=== PATIENT | female | born 1950 | race Caucasian/White ===

== ENCOUNTER 2016-06-05 22:13 | Inpatient (IN) | payer MEDICARE, BC, OTHER ==
[~2016-06-05] VITALS: Ht 170.2 cm; Wt 72.5 kg
--- NOTE | ~2016-06-05 | DS ---
PATIENT'S NAME: RENE MUNGUIA I [facility] AGE: 65 Y [address] ROOM: [address] [address] LOCATION: GPCU ADMIT DATE: 06/05/2016 Discharge Summary DISCHARGE DATE: 06/09/2016 FAMILY PHYSICIAN: Emerson Edmonds ATTENDING PHYSICIAN: John Park ADMITTING DIAGNOSIS: Subcapital fracture, left hip. COMORBIDITIES: Hypertension and vitamin D deficiency. PROCEDURE: Total hip arthroplasty, she had an Accolade II 127 degree neck angle, size 3 stem, +5, 36 mm femoral head, 52 mm cup. HOSPITAL COURSE: After admission, with a fall and a displaced subcapital fracture of the left hip, once Hospitalist cleared the patient, she was taken to the operating room, where the aforementioned total hip arthroplasty was performed. Postoperatively, hemoglobin was 11, DIE FINISHER intact to the operative foot, alert, awake, and oriented x3, some mild nausea, felt to be associated with Dilaudid. Postop day 2, continued to be nauseated. Postop day 3, hemoglobin 9.7, continued adjustments were made for accelerated hypertension. DISCHARGE INSTRUCTIONS: Follow up with myself in 6-[address] Park in 3 weeks. Hip dislocation precautions, thigh-high DUSTY hose to left lower leg, and the patient was discharged to home. Additional labs ordered in a week, vitamin D level recheck, additional prescriptions were written for aspirin 325 p.o. daily for DVT prophylaxis, Celebrex 200 mg p.o. b.i.d. for 1 week, Dilaudid 2 mg 1 p.o. q.4 h. p.r.n. pain, dispense 40, and prescription written for vitamin D 50,000 units once weekly for 8 weeks. Another prescription was written for front-wheel walker. CATHY STANFORD FOR MD MARCO A MARQUIS/[place] /[id number] d: 07/01/16 0329 t: 07/07/16 1033, DISCHARGE SUMMARY
--- NOTE | ~2016-06-05 | HP ---
PATIENT'S NAME: MUNGUIA, [facility] AGE: 65 Y [address] ROOM: [place] [address] LOCATION: GPCU ADMIT DATE: 06/05/2016 History & Physical DISCHARGE DATE: FAMILY PHYSICIAN: Emerson Edmonds ATTENDING PHYSICIAN: John Park DATE OF SERVICE: CHIEF COMPLAINT/HISTORY OF PRESENT ILLNESS: This is a 65-year-old female, who has been noticing about 4 weeks or so of left groin and anterior thigh pain. She assumed that it was muscular pain, but then last night her legs gave out and she fell on her left side. She was taken to [facility] where radiographs showed a displaced subcapital fracture of her left hip. 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 She had a recent bout of anal cancer, treated with chemotherapy and radiation. She apparently has been cancer free for a year now. PAST MEDICAL HISTORY: ALLERGIES: SHE STATES THAT MORPHINE AND PERCOCET CAUSE NAUSEA AND VOMITING. MEDICATIONS: 1. Zyrtec. 2. Mucinex. 3. Naproxen. 4. Dyazide. 5. Vitamin E. OPERATIONS: Appendectomy in the past. ILLNESSES: None other than the anal cancer, diagnosed 4 years ago, treated with chemotherapy and radiation. She also has a history of gastric carcinoma, diagnosed at the same time of her anal cancer, treated with chemotherapy and radiation. HABITS: She denies use or abuse of tobacco and alcohol. She quit smoking about 4 years ago and she smoked about a pack a day for 20 years. SOCIAL HISTORY: The patient is and lives in [place]. PATIENT'S NAME: EZRA [facility] AGE: 65 Y [address] ROOM: [address] [place] [id number] LOCATION: GPCU ADMIT DATE: 06/05/2016 History & Physical DISCHARGE DATE: FAMILY PHYSICIAN: Emerson Edmonds ATTENDING PHYSICIAN: John Park FAMILY HISTORY: Heart disease in her father, who is . Diabetes in her mother, who also is . 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 Osteoporosis by history. GI: History of gastric carcinoma and anal cancer as above. HEENT: Denies head injury or loss of consciousness. LUNGS: Denies shortness of breath or chest pain. CARDIOVASCULAR: Denies chest pain or palpitations. PHYSICAL EXAMINATION: GENERAL: This is a well-developed and well-nourished female, who is alert and cooperative. She is examined while she is lying in bed. VITAL SIGNS: Temperature 97.4, heart rate 76, respirations 12, and blood pressure 149/70. HEENT: Head normocephalic and atraumatic. NECK: Nontender. CARDIOVASCULAR: Regular rate and rhythm. LUNGS: Clear to auscultation. ABDOMEN: Soft. Nontender. She has a couple of tattoos, one in the midline for her radiation therapy markers. EXTREMITIES: She has lymphedema in her left lower extremity and pain on any attempts of motion. NEUROLOGIC: Cranial nerves II through XII grossly intact. Sensation intact in her left lower extremity. RADIOGRAPHS: Accompanied the patient from [place]. These are AP and lateral of the entire left femur and these show a displaced subcapital fracture of her left hip. IMPRESSION: 1. Displaced subcapital fracture, left hip. 2. History of rectal cancer, treated with chemotherapy and radiation. 3. History of gastric cancer, treated with chemotherapy and radiation. PLAN: The patient will be taken to the operating room for total hip arthroplasty. We did discuss hemiarthroplasty versus total hip arthroplasty. With her history of being cancer free at this point and her age is 65 and her activity level, it seems most reasonable to offer her total hip replacement. The procedure, its risks, benefits, and alternatives were discussed with the patient, who appears to understand and request to proceed. PATIENT'S NAME: RENE MUNGUIA I [facility] AGE: 65 Y [address] ROOM: [place] [address] [facility] ADMIT DATE: 06/05/2016 History & Physical DISCHARGE DATE: FAMILY PHYSICIAN: Emerson Edmonds ATTENDING PHYSICIAN: John Park MD MARVIN MARQUIS/[place] /[id number] D: [id number] T: [id number] HISTORY & PHYSICAL
--- NOTE | ~2016-06-05 | OR ---
PATIENT'S NAME: RENE MUNGUIA I [facility] AGE: 65 Y [address] ROOM: [address] [address] LOCATION: GPCU ADMIT DATE: 06/05/2016 OR/Procedure Report DISCHARGE DATE: FAMILY PHYSICIAN: Emerson Edmonds ATTENDING PHYSICIAN: John Park SURGEON: John Park MD ASSISTANT AUDITOR: DATE OF PROCEDURE: 06/06/2016 PREOPERATIVE DIAGNOSIS: Displaced subcapital fracture, left hip. POSTOPERATIVE DIAGNOSIS: Displaced subcapital fracture, left hip. OPERATION: Noncemented left total hip replacement with Bridgett Accolade II #3 high-offset stem with a +5 x 36 mm metal head and 52 mm cluster holed cup with 36 mm X3 liner. ANESTHESIA: Subarachnoid block. INDICATIONS: This is a 65-year-old female, who has been having left groin and anterior thigh pain for about 3 or 4 weeks and had a sudden fall yesterday with radiographs showing displaced subcapital fracture of her left hip. The patient has had rectal or anal cancer, treated with radiation in the past. She is about 1 year of cancer free interval now. PROCEDURE: The patient was brought to the operating room and when a satisfactory spinal anesthesia had been established, she was transferred to the operating table and placed on her right side with her left side up. Left lower extremity, hip, and hemipelvis were prepped and draped in an aseptic manner. A curvilinear posterior incision was made, centered over the greater trochanter, and carried down through the subcutaneous fat. Fascia tonie and fascia gluteus najma were divided in line with the skin incision. Short external rotators were put on stretch and cut close to the greater trochanter and the capsule exposed. The capsule was opened in an upside-down hockey stick-shaped incision and a corkscrew used to remove the head. The neck was cut a fingerbreadth proximal to the lesser trochanter and a box cut chisel was used to lateralize the neck. The canal was found and broaching started at 0 and carried up to a #3, which appeared to be tight. The acetabulum was exposed and soft tissues debrided. A 44 mm reamer was used to medialize the cup and then reaming carried to 48, 49, 50, 51, and 52. A 52 mm cluster holed cup was opened and impacted home, attempting to maintain a little greater than anatomic anteversion and about 40 degrees of abduction. The cup seated nicely and was very tight and could not be loosened with finger pressure. A trial 36 liner was placed and trial reduction performed with a #3 standard offset, high- offset, +0, and +5. The most stable construct was the +5 high-offset, 36 mm. PATIENT'S NAME: RENE MUNGUIA I [facility] AGE: 65 Y [address] ROOM: [id number] [place], [place] [address] LOCATION: [facility] ADMIT DATE: 06/05/2016 OR/Procedure Report DISCHARGE DATE: FAMILY PHYSICIAN: Emerson Edmonds ATTENDING PHYSICIAN: John Park Distal shuck was maybe 5 mm and lateral shuck was the same. The hip was stable with abduction and external rotation and would dislocate at 90 degrees of flexion with 0 degrees of adduction and about 60 degrees of internal rotation. This was accepted. The trials were removed and the definitive X3 36 mm non-hooded cup liner was impacted home. The broach was removed and the canal irrigated. The #3 high-offset stem was impacted home. Trial reduction was performed with +0 and +5 x 36 mm heads. The +5 was definitely more stable, so a +5 definitive 36 mm metal head was impacted home. The hip was reduced and the wound irrigated copiously with saline. The capsule was closed with interrupted #2 Orthocord. The piriformis was closed with modified Maloney stitch and #2 Orthocord. The fascia tonie was closed with running #1 Vicryl and the fascia gluteus najma was closed with a running #1 Vicryl. Subcutaneous fat was closed with running 2-0 Vicryl and skin closed with skin dana. Dressings were applied and the patient sent to the recovery area having tolerated the procedure well. MD MARVIN MARQUIS/[place] /[id number] d: 06/06/16 1806 t: 06/09/16 0955, OPERATIVE SUMMARY
--- NOTE | ~2016-06-05 | CON ---
PATIENT'S NAME: RENE MUNGUIA I [facility] AGE: 65 Y [address] ROOM: [address] [place], [place] [address] LOCATION: GPCU ADMIT DATE: 06/05/2016 Consultation DISCHARGE DATE: FAMILY PHYSICIAN: PHYSICIAN, UNKNOWN ATTENDING PHYSICIAN: John Park REFERRING PHYSICIAN: SOULEYMANE RUSH MD CHIEF COMPLAINT: Left hip pain status post fall. HISTORY OF PRESENT ILLNESS: This is a 65-year-old female who says that she pulled her left thigh muscle 4 weeks ago and is recovering and is doing much better. Last night, she went out for dinner with her . While she was walking into the restaurant, she felt that her legs feel weak and that her legs gave out. She fell on her left side landing her left hip against the ground. At that time, she has some pain, but it was not that severe. She was having difficult time getting up because of the pain in the left hip. However with the help from the and from a bystander, the patient was able to get up and still walk into the restaurant and have dinner. When she finished her meal then went home and that is when her left hip pain was getting progressively worse especially with ambulation. Because of the worsening pain, the patient was brought to [facility] in [place] for evaluation. Over there, the patient had x-ray of the left femur and that showed acute left subcapital femoral neck fracture. The patient was later transferred here for higher level of care. At baseline, she is a physically active female who takes care of herself and does all the activity of daily living by herself. Her METS score is more 4. At baseline, she denies any chest pain or shortness of breath at rest or on exertion. She also does not have any known cardiac or pulmonary history. She denies any myocardial infarction or heart failure or atrial fibrillation or any heart surgery or any COPD or asthma in the past or present. REVIEW OF SYSTEMS: As mentioned in the history of present illness. All other systems reviewed and negative except those mentioned in the history of present illness. PAST MEDICAL HISTORY: 1. History of anal cancer diagnosed 4 years ago, on chemotherapy and radiation. She already finished and she will be having a repeat CT scan of the abdomen and pelvis in July 2016 to determine if she requires any further chemotherapy or radiation. She has been followed by Dr. Valenzuela. 2. History of gastric carcinoma also diagnosed at the same time of her anal cancer. Also finished chemotherapy and radiation. Also will have a repeat CT abdomen and pelvis in July 2016 to determine if she will require PATIENT'S NAME: RENE MUNGUIA I [facility] AGE: 65 Y [address] ROOM: [place] [address] LOCATION: GPCU ADMIT DATE: 06/05/2016 Consultation DISCHARGE DATE: FAMILY PHYSICIAN: PHYSICIAN, UNKNOWN ATTENDING PHYSICIAN: John Park further chemotherapy or radiation. 3. 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 4. Osteoporosis. 5. The patient denies any other past medical history. ALLERGIES: PERCOCET WHICH CAUSES NAUSEA AND VOMITING. HOME MEDICATIONS: 1. Zyrtec 10 mg p.o. every night at bedtime p.r.n. for nasal allergy. 2. Mucinex extended release 600/30 mg of dextromethorphan 1 tablet p.o. b.i.d. p.r.n. for cough. 3. Naproxen 220 mg 2 tablets p.o. every 6 hours p.r.n. for pain or fever. 4. Dyazide 37.5/25 mg 1 capsule p.o. daily p.r.n. for leg edema. 5. Vitamin E 400 units p.o. every day 1 capsule daily. SOCIAL HISTORY: The patient was a former cigarette smoker. She quit about 4 years ago and she used to smoke about 1 pack per day for 20 years. She denies any alcohol or illegal drug use. PAST SURGICAL HISTORY: Status post appendectomy. FAMILY HISTORY: Father from some kind of cardiac complication from heart transplant surgery and from rheumatic fever. Mother also from a cause that she could not remember, but her mother had a diabetes. PHYSICAL EXAMINATION: VITAL SIGNS: At the time of my dictation; temperature 97.4, heart rate 76, respirations 12, blood pressure 149/70, saturation 99% on room air. GENERAL APPEARANCE: Alert and oriented x3, in no acute distress. HEENT: Pupils equally round and reactive to light. Extraocular muscles intact. Nasal turbinates normal bilaterally. Moist oral mucosa. NECK: No JVD. No cervical lymphadenopathy. CARDIOVASCULAR: Regular rate and rhythm. Normal S1, S2. No murmur. No rubs. No gallops. RESPIRATORY: Clear. ABDOMEN: Soft, nontender, nondistended, normal bowel sounds. No hepatosplenomegaly. EXTREMITIES: Edema +2 in left lower extremity which is chronic at baseline. No edema in the right lower extremity. SKIN: No ulcer, no rash, no cyanosis. MUSCULOSKELETAL: Right hip pain from the fracture. Range of motion intact in PATIENT'S NAME: RENE MUNGUIA I [facility] AGE: 65 Y [address] ROOM: [id number] [place], [place] [address] LOCATION: GPCU ADMIT DATE: 06/05/2016 Consultation DISCHARGE DATE: FAMILY PHYSICIAN: PHYSICIAN, UNKNOWN ATTENDING PHYSICIAN: John Prak the left lower extremity. NEUROLOGIC: Grossly nonfocal. Sensation intact. Dorsalis pedis pulse present bilaterally. LABORATORY DATA: White blood cell 8.1, hemoglobin 12, hematocrit 35.9, MCV 89.1, platelet 259, glucose 147, BUN 32, creatinine 1.4. Sodium 140, potassium 2.8, chloride 102, CO2 29, calcium 8.6, GFR 38, albumin 3.0, INR 0.9, PTT 28. IMAGING STUDY: Chest x-ray on admission, official reading is pending, based on my review, unremarkable. EKG on admission shows sinus rhythm at a heart rate of 60 beats per minutes with PA 187, QRS 104, QTc 446. No acute ischemic findings. X-ray of the left hip performed from the outside facility showed acute left subcapital femoral neck fracture. ASSESSMENT AND PLAN: 1. Regarding her acute left subcapital femoral neck fracture status post fall. The treatment will be pain control per Orthopedic Surgery. Surgical intervention per Orthopedic Surgery. 2. Regarding her preoperative medical clearance. Currently, not yet medically cleared unless her potassium is normal in the morning before the surgery. Currently, I am replacing her potassium with 40 mEq potassium chloride 1 dose right now and repeat another one in 4 hours. At the same time, I am changing IV fluids from lactated Ringer to normal saline and 40 mEq of potassium chloride running at 100 mL/h. She has no other contraindication for surgery except will have to replace potassium to prevent arrhythmia during surgery. Her muscle weakness that made her fall today might also be secondary to her hypokalemia induced muscle weakness. Otherwise, she does not have any other contraindication for surgery. Orthopedic surgery is intermediate risk surgery. However at the moment, she does not have any other active cardiac contraindication for orthopedic surgery. Potassium is being replaced and then she can be cleared for surgery. Her METS score is more than 4. 3. Regarding her YUMIKO. The patient has been having poor appetite and she does have on and off diarrhea from her radiation induced likely side effect in the rectum causing diarrhea. Thus far, her potassium is low. She is getting IV hydration right now and we will check the kidney function again in the morning. Her kidney function does not prevent her from getting the Orthopedic Surgery. 4. Regarding her anal cancer and gastric cancer. Followup as outpatient with her primary oncologist. PATIENT'S NAME: RENE MUNGUIA I [facility] AGE: 65 Y [address] ROOM: [place] [address] [facility] ADMIT DATE: 06/05/2016 Consultation DISCHARGE DATE: FAMILY PHYSICIAN: PHYSICIAN, UNKNOWN ATTENDING PHYSICIAN: John Park 5. Regarding her osteoporosis. Outpatient management by the primary care physician. I will check vitamin D 25 hydroxy level and replace vitamin D if necessary. 6. DVT prophylaxis. Per Orthopedic Surgery. Time spent in care on the day of consultation 40 minutes including chart review, interviewing and examining the patient, addressing all the questions and concerns that the patient had, and going over the plan of care with the patient. SOULEYMANE RUSH MD CC/modl /[id number] d: 06/06/16 0440 t: 06/23/16 0737, CONSULTATION REPORT
[2016-06-05] MEDS ORDERED: ZYRTEC10 MG PO (22:36)
[2016-06-05] MEDS ORDERED: MUCINEX D ER 11 EACH PO (22:39)
[2016-06-05] MEDS ORDERED: VITAMIN E400 UNI2 PO (22:40)
[2016-06-05] MEDS ORDERED: DYAZIDE 37.5-21 EACH PO (22:41)
[2016-06-05] MEDS ORDERED: ALEVE220 M1 PO (22:42)
[2016-06-05 23:50] LABS: BASOPHIL % 0.4 %; EOSINOPHIL # 0.2 K/uL (0.0-0.5); EOSINOPHIL % 1.9 %; HEMATOCRIT 35.9 % (33.0-46.0); IMMATURE GRANULOCYTE # 0.1 K/uL (0.0-0.3); IMMATURE GRANULOCYTE % 0.6 %; LYMPHOCYTE # 1.4 K/uL (0.8-4.0); LYMPHOCYTE % 17.8 %; MCH 29.8 pg (27.0-34.0); MCHC 33.4 gm/dL (32.0-36.5); MCV 89.1 fl (83.0-98.0); MONOCYTE # 0.9 K/uL (0.0-1.0); MONOCYTE % 11.4 %; MPV 8.8 fl (9.4-12.4); NEUTROPHIL # (ANC) 5.5 K/uL (1.8-7.8); NEUTROPHIL % 67.9 %; NRBC % 0 /100WBC (0-0.00); PLATELET COUNT 259 K/uL (150-450); RBC 4.03 M/uL (3.50-5.50); RDW-CV 12.8 % (11.9-14.6); WBC 8.1 K/uL (4.0-11.0)
[2016-06-06 00:02] LABS: INR - (THERAPEUTIC) 0.9 (0.9-1.1); PROTIME 9.8 SECONDS (9.6-11.1); PTT 28 SECONDS (25-32)
[2016-06-06 00:03] LABS: ANION GAP 11.8 (10.0-19.0); CALCIUM 8.6 mg/dL (8.5-10.5); CREATININE 1.4 mg/dL (0.5-1.1); PHOSPHORUS 3.2 mg/dL (2.5-4.9)
[2016-06-06 00:04] LABS: POTASSIUM 2.8 mMol/L (3.7-5.1)
--- NOTE | 2016-06-06 01:26 | NUR ---
Pt is a 65 year old female who arrived by EMS to PCU. Being admitted for Displaced Left hip fracture by Dr. Park. History of Hypertension, colon radiation in 2014, and former smoker (quit in 2013). No known drug allergies. Adverse reaction to acetaminophen and oxycodone. Garcia in place upon arrival to unit.
--- NOTE | 2016-06-06 04:43 | NUR ---
Significant Event: A/O x3. Afebrile. Pain in left hip/leg. Gave dilaudid x1 for pain. VSS on RA. L)hip reddened,warm; applied cold therapy to site. Left leg has 2-3+ pitting edema. On bedrest. NPO since midnight. EKG and xray done. Gave 40meq K and started NS w/ 40 KCL @ 100 continuous. Follow up: Possible total hip surgery today. Follow hip fracture protocol.
[2016-06-06 07:24] LABS: ANION GAP 11.2 (10.0-19.0); CALCIUM 8.2 mg/dL (8.5-10.5); CREATININE 1.3 mg/dL (0.5-1.1)
[2016-06-06 07:29] LABS: POTASSIUM 4.2 mMol/L (3.7-5.1)
[2016-06-06 10:45] LABS: BILIRUBIN URINE NEGATIVE (NEGATIVE); BLOOD URINE 250 /UL (NEGATIVE); COLOR URINE YELLOW (YELLOW); GLUCOSE URINE NEGATIVE (NEGATIVE); KETONE URINE NEGATIVE (NEGATIVE); LEUKOCYTES URINE 100 /UL (NEGATIVE); NITRITE URINE NEGATIVE (NEGATIVE); PH URINE 6.5 (4.0-8.0); PROTEIN URINE 100 mg/dL (NEGATIVE); SPEC GRAVITY URINE 1.015 (1.003-1.035); TURBIDITY URINE 1+ (CLEAR); UROBILINOGEN URINE NORMAL (NORMAL)
[2016-06-06 10:52] LABS: BACTERIA URINE NEGATIVE (NEGATIVE); EPITHELIAL URINE RARE #/HPF (NEGATIVE); RBC URINE 20-50 #/HPF (NEGATIVE); WBC URINE 0-2 #/HPF (NEGATIVE)
--- NOTE | 2016-06-06 16:33 | NUR ---
PATIENT TO PRE-OP AT 1045 AND RETURNED FROM SURGERY AT 1520
--- NOTE | 2016-06-06 18:59 | NUR ---
PATIENT WENT TO SURGERY FOR A TOTAL HIP REPAIR TODAY. SHE RECIEVED A SPINAL AND HAS YET TO RETAIN FULL SENSATION OR MOVEMENT IN LOWER EXTREMITIES. SHE IS AWAKE AND ALERT AND ORIENTED AND IS DOING WELL.
[2016-06-07 02:53] LABS: BASOPHIL % 0.2 %; HEMATOCRIT 33.3 % (33.0-46.0); IMMATURE GRANULOCYTE % 0.4 %; LYMPHOCYTE % 8.7 %; MCH 29.6 pg (27.0-34.0); MCV 89.8 fl (83.0-98.0); MONOCYTE # 0.7 K/uL (0.0-1.0); MONOCYTE % 6.4 %; MPV 9.1 fl (9.4-12.4); NEUTROPHIL # (ANC) 9.3 K/uL (1.8-7.8); NEUTROPHIL % 84.3 %; NRBC % 0 /100WBC (0-0.00); PLATELET COUNT 218 K/uL (150-450); RBC 3.71 M/uL (3.50-5.50)
[2016-06-07 03:09] LABS: ANION GAP 14.3 (10.0-19.0); CALCIUM 8.7 mg/dL (8.5-10.5); CREATININE 1.1 mg/dL (0.5-1.1); MAGNESIUM 2.1 mg/dL (1.3-2.6); POTASSIUM 4.3 mMol/L (3.7-5.1)
--- NOTE | 2016-06-07 05:47 | NUR ---
Significant Event:A/Ox3. Afebrile. Hypertensive SBP 170-180s. PO Norvasc given x1, PRN hydralazine x2 IVP 10mg for SBP >180. No c/o pain received 2mg Dilaudid for anticipated pain once spinal wore off. Patient has regained sensation to both lower extremities and states no dull ache. Ambrose to be removed by this afternoon, patient still very drowsy as of this note and has not been out of bed. Follow up:Ambulate to chair today. D/C ambrose.
--- NOTE | 2016-06-07 05:54 | NUR ---
Significant Event:A/O but forgetful. VSS on RA. Patient has been cooperative with cares and took all medications no issues. Patient has complained of visual hallucinations but understands that what he is seeing is not really in the room Patient rested in the recliner all night, shifted weight side to side and stood at the bedside x1. Transfers 2 assist with walker/GB. No stools this shift. No UOP noted, Dialysis today time unknown. Morphine x1 for back pain when standing. Follow up:Dialysis today.
--- NOTE | 2016-06-07 15:06 | NUR ---
Introduced self and role of care management to patient and . They live in [facility]. She states that she is normally able to do all her own ADL's. SHe states that he is available to assist as needed. She states that she has not really walked since surgery and is not sure how she will do. I explained that we would see how she does with PT/OT to see what she will need for discharge. She denies any needs at this time. Will continue to follow.
--- NOTE | 2016-06-07 19:21 | NUR ---
Significant Event: Alert & oriented. SBP 160-180, HR 80-100, afebrile, room air. 2 assist with transfers. 3+ edema to left leg, preop lymphedema. Dressing to L) hip CDI. CSM intact. Clear & full liquids today, 2 emesis. Follow up: Continue PRN meds for hypertension, nausea, spasms, pain. Advance diet as tolerated.
--- NOTE | 2016-06-08 04:06 | NUR ---
Significant Event:pt aaox3.pleasant with all cares and staff.transfers with 1-2 assist gaitbelt walker. uses bedside commode. voiding with no complicatoins following ambrose dc 3-27.nucynta 1 tab for pain at 2100 and pt has been resting well since. dressing to left hip c/d/i. pt hypertensive during shift, hydralazine given 2x for bp greater then 180. pt can be anxious at times. pulse noted to be greater then 100 all of shift.no n/v during shift. csm to left leg wnl. pt noted to have chronich lymphedema from past radiation so 3+ edeam is pt baseline. Follow up:
--- NOTE | 2016-06-08 14:24 | NUR ---
Received a call from [place] patients nurse stating that patients daughter would like to speak with me. Patients daughter Raven was gone when I got to patients room. I did call and speak with her on the phone. She voices concern about patient going home on discharge. I explained that if patient was not ready to go home on discharge we could look at a skilled stay. We also discussed how many times PT/OT had seen patient. I did read her the PT/OT notes that were in the computer. I spoke with patient and her and gave her the options of a skilled stay. I explained that she could go to TCU or I could check and see if [facility] would have a bed available. They were in agreement. I called and spoke with Melba SO coordinator in [facility] and she states that will not have any available beds this week as they are full with surgicals. I will update patient. I did call and speak with Macey on TCU> She states that they can take patient to TCU on 06/10 at 1300. Will continue to follow.
--- NOTE | 2016-06-08 17:17 | NUR ---
A&O. HTN 160'S. HR 90'S. RA. LS CLEAR. AFEBRILE. L HIP DSH CDI. 1PA. LYMPHEDEMA 3+ TO LLE D/T CA HX. PRN BP MEDS IF > 170. IV L HAND SL ANXIOUS AT TIMES. NO BM PRN MEDS. NO C/O PAIN. NAUSEA TODAY ON AND OFF REFUSED MEDS. PT AND DISAPPOINTED SAID SHE WAS NOT OUT OF BED YESTERDAY PT /OT NOTES SHOWED THAT SHE WAS ALSO SAID SHE WAS NOT GETTING THERAPY TODAY BUT THEY WERE HERE THEY STATE SAID SHE WOULD HAVE AN INTENSE THERAPY REGIMNE CONSISTING OF THERAPYS 3-4 TIMES A DAY. DAUGHTER HERE THIS AM WITH LOTS OF QUESTIONS REGAURDING, DIET, PAIN REGIMEN, AND DISMISSAL. PT/OT/ AND CARE MANEGMENT CALLED
--- NOTE | 2016-06-09 01:47 | NUR ---
0130 PATIENT IS RESTING QUIETLY IN BED WITH EYES CLOSED. PATIENT DENIES ANY FURTHER NAUSEA OR PAIN. BP CONTINUES TO RISE. IV LABETALOL IS ADMINSTERED. BP QUICKLY DECREASES TO 160/76 WITHIN 5 MINUTES. PATIENT REPORTS SHE FEELS BETTER. BP BEING MONITORED EVERY 5 MINUTES UNTIL STABILIZES. PATIENT IS TEARFUL REGARDING ALL THE NEW MEDICATIONS BEING ADMINISTERED.
--- NOTE | 2016-06-09 01:50 | NUR ---
0015 PATIENT IS EXPERIENCINIG NAUSEA AND IS DRY HEAVING. INITIALLY SHE REFUSES ZOFRAN BUT DOES EVENUTALLY ALLOW IT TO BE ADMINISTERED. THIS SEEMS TO HELP. BP CONTINUES TO INCREASE. WILL CONTINUE TO MONITOR ONCE PATIENT HAS CALMED DOWN.
--- NOTE | 2016-06-09 05:46 | NUR ---
Significant Event: PATIENT IS ALERT AND ORIENTED. DENIES ANY PAIN BUT HAS PERSISTENT NAUSEA. HTN WAS AN ISSUE. RECEIVED 2 DOSES OF HYDRALAZINE FOR SBP >180. BP DID NOT RESPOND. DR. EDWARD CONTACTED. ORDER OBTAINED FOR LEBETALOL FOR SBP >180. THIS WAS ADMINISTERED AND PATIENT'S BP AND HR DID DECREASE. PATIENT WAS ANXIOUS AND TEARFUL REGARDING ALL THE NEW MEDICATIONS. LAST BM 06/04. PATIENT IS PASSING GAS AND REPORTS SHE HAD A SMALL HARD STOOL. Follow up:
[2016-06-09] MEDS ORDERED: ASPIRIN325 MG PO (11:34)
[2016-06-09] MEDS ORDERED: CELEBREX200 MG PO (11:34)
[2016-06-09] MEDS ORDERED: SURFAK240 MG PO (11:35)
[2016-06-09] MEDS ORDERED: HEALTHYLAX17 GM PO (11:45)
[2016-06-09] MEDS ORDERED: SENOKOT8.6 MG PO (11:46)
[2016-06-09] MEDS ORDERED: DILAUDID 2MG(HYD2 MG PO (11:48)
[2016-06-09] MEDS ORDERED: DRISDOL 5050000 UNIT PO (11:51)
--- NOTE | 2016-06-09 13:42 | NUR ---
Patient has signed discharge orders on chart. Script for front wheeled walker on chart.
--- NOTE | 2016-06-09 19:28 | NUR ---
SBP 150-160, HR 80-110, AFEBRILE, ROOM AIR. WORKED WITH PT AND OT. DC TO HOME AT 1500, ESCORTED TO VEHICLE BY [employer]. BELONGINGS WITH PT, SPOUSE TO TRANSPORT
== END 2016-06-09 15:14 | disposition disaster alternative care site (69) | DRG 470 ==
LOC: GPCU 22:13
PROVIDERS: Hospitalist; Internal Medicine; ADMIT Orthopaedic Surgery
PROC: 0SRB02A Replacement of Left Hip Joint with Metal on Polyethylene Synthetic Substitute, Uncemented, Open Approach (ICD-10-PCS; principal; 2016-06-06)
DX: S72.012A Unspecified intracapsular fracture of left femur, initial encounter for closed fracture (principal); N17.9 Acute kidney failure, unspecified; Z85.048 Personal history of other malignant neoplasm of rectum, rectosigmoid junction, and anus; Z85.028 Personal history of other malignant neoplasm of stomach; Z92.21 Personal history of antineoplastic chemotherapy; Z92.3 Personal history of irradiation; Z87.891 Personal history of nicotine dependence; M81.0 Age-related osteoporosis without current pathological fracture; R60.9 Edema, unspecified; E87.6 Hypokalemia; I10 Essential (primary) hypertension; E55.9 Vitamin D deficiency, unspecified; W18.30XA Fall on same level, unspecified, initial encounter
CPT/HCPCS: C1776; C9113; J0171; J0360; J0690; J0735; J1885; J2001; J2270; J2405; J2765; J2795; J3480; J7030; J7040; J7120